=== PATIENT | female | born 1985 | race Two or more races ===

== ENCOUNTER → 2022-11-19 | Outpatient (CLI) | payer MEDICAID ==
[~2022-11-19] MED LIST: ALBUTEROL SULF 2.5 MG/0.5ML(0.5%) NEB SOLN ONE
== END | disposition home or self-care (01) ==
LOC: RT 10:14
PROVIDERS: ATTEND Internal Medicine Pulmonary Disease
DX: J45.40 Moderate persistent asthma, uncomplicated (principal); R06.09 Other forms of dyspnea
CPT/HCPCS: 94060